=== PATIENT | male | born 1980 | race Caucasian/White ===

== ENCOUNTER 2018-09-01 16:10 | Observation (INO) ==
[2018-09-01] MEDS ORDERED: *HR* Promethazine 25 MG/ML VIAL IVP PRN (16:34)
[2018-09-01] MEDS ORDERED: *HR* HYDROcodone/Acet 5/325 mg TABLET PO PRN (16:34)
[2018-09-01] MEDS ORDERED: Ondansetron 4 MG/2 ML VIAL IVP PRN (16:34)
[2018-09-01] MEDS ORDERED: Naloxone 0.4 MG/ML INJ IVP PRN (16:34)
[2018-09-01] MEDS: 0.9 % Sodium Chloride 1,000 ML IVC SCH (17:12)
--- NOTE | 2018-09-01 17:19 | Urology History & Physical ---
Date of Encounter: 09/01/18 Time of Encounter: 17:17 Assessment and Plan (1) Ureteral stone with hydronephrosis Current Visit: Yes Status: Acute Visit was scheduled for a stone extraction but his pain now requires admission. We'll plan for ureteroscopic stone extraction with holmium laser tomorrow on the add-on schedule. Patient understands the procedure and all questions were addressed. (2) Flank pain Current Visit: Yes Status: Acute We'll manage pain with Toradol and oxycodone. BMP to confirm renal function prior to giving Toradol. History of Present Illness Chief complaint: Flank pain HPI: Mr. Muhammad is a 38 year old male seen in Dr. Jewell's office today with a 4 mm mid ureteral calculi on the left side. Before leaving the office the patient reports his symptoms are too severe to manage at home. Has returned for admission and surgical management. Past Med Surg Social Fam HX - Past Medical History Medical history: no medical history Psychiatric history: no psych history - Past Surgical History Surgical History: herniorrhaphy - Social History Smoking Status: Never smoker Smokeless Tobacco Status: No Alcohol use: occasionally Drug use: none - Family History Father Hx Family Genitourinary Disorders: Yes (kidney stones) Medications and Allergies 3 Allergy/AdvReac Type Severity Reaction Status Date / Time ceftriaxone [From Rocephin] AdvReac Vomiting Verified 03/27/17 12:09 Review of Systems - Constitutional no chills, no fever(s) - EENT Nose, mouth and throat: no dizziness - Cardiovascular no chest pain - Respiratory no cough - Gastrointestinal abdominal pain, nausea - Genitourinary flank pain, hematuria - Musculoskeletal back pain - Integumentary no erythema - Neurological no confusion - Psychiatric no anxiety - Hematologic/Lymphatic no easy bleeding - Allergic/Immunologic no throat swelling Exam Initial Vital Signs Temp Pulse Resp BP Pulse Ox 98.1 F 63 14 124/81 97 09/01/18 16:46 09/01/18 16:46 09/01/18 16:46 09/01/18 16:46 09/01/18 16:46 - General physical appearance Present: well developed, no distress, moderate pain - Eyes Present: PERRL - ENT Present: normal nares, no hearing loss - Neck Present: no masses, no lymphadenopathy - Respiratory Present: normal respiratory effort - Cardiovascular Cardiovascular exam IM: RRR - Abdomen Abdomen: Present: soft, suprapubic tenderness (+CVA tenderness) - Integumentary Present: no rash, no growths, no abnormal pigmentation - Neurologic Present: normal coordination. Absent: disoriented, confused - Musculoskeletal Present: normal gait Urology Results - Labs All other labs normal.
[2018-09-01] MEDS: OXYCODONE Oral CONC 10 MG/0.5 ML ORAL.SYG SL PRN ×2 (18:12→23:25)
[2018-09-01 18:17] LABS: Basophils % 0.3 %; Eosinophils % 0.2 %; Hematocrit 47.2 % (37.5-50.1); Hemoglobin 15.7 g/dL (12.9-16.9); Immature Granulocytes % 0.5 % (0-4); Lymphocytes # 1.4 K/mcL (0.6-4.6); Mean Corpuscular HGB Conc 33.3 g/dL (31.6-35.5); Mean Corpuscular Hemoglobin 29.4 pg (28.0-33.3); Mean Corpuscular Volume 88.4 fL (83.0-100.0); Mean Platelet Volume 9.3 fL (9.4-12.4); Monocytes # 0.8 K/mcL (0.0-1.3); Monocytes % 6.8 %; Platelet Count 222 K/mcL (140-400); Red Blood Count 5.34 M/mcL (4.19-5.50); Red Cell Distribution Width 12.4 % (11.5-14.5); Segmented Neutrophils % 81.2 %
[2018-09-01 18:33] LABS: BUN/Creatinine Ratio 17 (6-26); Blood Urea Nitrogen 19 mg/dL (6-20); Calcium 9.5 mg/dL (8.6-10.3); Carbon Dioxide 31 mEq/L (23-29); Chloride 102 mEq/L (98-107); Glucose 96 mg/dL (70-105); Osmolality,Calculated 290 (280-300); Potassium 3.9 mEq/L (3.5-5.1); Sodium 139 mEq/L (136-145); eGFR For Non-African Americans > 60 (> 60)
[2018-09-01] MEDS: Ketorolac 30 MG/ML VIAL IVP PRN (20:28)
[2018-09-02] MEDS: Ketorolac 30 MG/ML VIAL IVP PRN ×2 (02:25→09:45)
[2018-09-02] MEDS: 0.9 % Sodium Chloride 1,000 ML IVC SCH (02:55)
[2018-09-02] MEDS: OXYCODONE Oral CONC 10 MG/0.5 ML ORAL.SYG SL PRN ×2 (07:48→12:37)
[2018-09-02] MEDS ORDERED: Levofloxacin 500 MG/100 ML 500 MG/100 ML BAG IVPB SCH (09:00)
--- NOTE | 2018-09-02 11:16 | Anesthesia Evaluation PreOp ---
Date of Encounter: 09/02/18 Time of Encounter: 11:20 - Past History Planned Operation: Left USE Cardiac History: Denies any Significant Hx Pulmonary History: Denies Any Significant HX UNDERWEAR HEMMER History: Denies Any Significant HX Other Medical History: Denies Any Significant HX Anesthesia History: No Prior Anesthetic Complications Alcohol Use: occasionally Drug use: none Medications and Allergies Lansoprazole [Prevacid] 30 mg PO DAILY 09/02/18 [History] 3 Allergy/AdvReac Type Severity Reaction Status Date / Time ceftriaxone [From Rocephin] AdvReac Vomiting Verified 03/27/17 12:09 - Meds/Allergy Pre-op Review Medications Reviewed: Yes Allergies Reviewed: Yes Beta Blockers on Current Med List: No Anesthesia Results - Labs 09/01/18 17:49 09/01/18 17:49 Anesthesia Exam Vital Signs/O2 Sat/Glucose, Most Current Temp Pulse Resp BP Pulse Ox 09/02/18 10:18 97.8 F 54 15 120/69 95 09/02/18 07:33 97.4 F L 52 15 128/80 98 Height: 6'0 Weight: 229 lbs NPO (# of Hours): MN Pain Scale: 0 - HEENT Pupil (Motor): Pupils equal, EOMI Mallampati: II Teeth: Normal Oral Opening: Greater than 3 - UNDERWEAR HEMMER LOC: Oriented UNDERWEAR HEMMER Motor: Normal RUE, Normal LUE, Normal RLE, Normal LLE, Normal Face UNDERWEAR HEMMER Sensory: Normal: RUE, LUE, RLE, LLE, Face - Cardiac Rhythm: Regular Murmur: None JVD: No Carotid Bruit: No - Pulmonary Breath Sounds: bilateral Clear Respiratory Effort: Symmetrical Anesthesia Assess/Plan ASA Score: 1 Modified Jeremiah Scale for Level of Consciousness: Cooperative, oriented, and tranquil Anesthetic Plan: General Monitoring Plan: Standard Monitors Recovery Plan: PACU (Discussed GA, agrees to proceed)
[2018-09-02] MEDS ORDERED: Famotidine 20 MG/2 ML VIAL ONE (11:21)
[2018-09-02] MEDS ORDERED: Isovue-300 50 ML VIAL IVP ONE (11:31)
[2018-09-02] MEDS ORDERED: *HR* Propofol 200 MG/20 ML VIAL IVP ONE (11:34)
[2018-09-02] MEDS ORDERED: Lidocaine -MPF 2% 2 ML VIAL ONE (11:34)
[2018-09-02] MEDS ORDERED: Ondansetron 4 MG/2 ML VIAL ONE (11:34)
[2018-09-02] MEDS ORDERED: Dexamethasone 4 MG/ML VIAL ONE (11:34)
[2018-09-02] MEDS ORDERED: *HR* FentaNYL (PF) 100 MCG/2 ML VIAL ONE (11:34)
--- NOTE | 2018-09-02 11:47 | Operative Note ---
Date of procedure: 09/02/18 Pre-op diagnosis: left 4 mm mid ureteral stone Post-op diagnosis: same Procedure: left ureteroscopic stone extraction left retrograde pyelogram/JJ stent. Anesthesia: GETA Surgeon: Dev Ramírez Was there an administrative library assistant present: No Estimated blood loss (cc): 0 Specimen: stone Condition: stable Disposition: PACU Procedure in Detail: PROCEDURE IN DETAIL: Patient was taken back to the operating room, positioned supine on the operating table. Anesthesia was applied without complication. They were moved into dorsal lithotomy. Careful attention was maintained to cushion all pressure points for patient's safety. They were prepped and draped in sterile fashion. Time-out was performed with the proper patient and procedure. A 21-Thai rigid cystoscope was inserted into the bladder without difficulty. Systematic examination of bladder revealed no abnormalities. The ureteral orifice was cannulated using a 5-Thai ureteral Catheter and a retrograde pyelogram was performed using Isovue. A filling defect was identified which corresponded to the stone. At that point, a zip wire was placed through the 5-Thai and confirmed in the renal pelvis with fluoroscopy. An 8-10 dilator was then placed over the zip wire to passively dilate the ureteral orifice. A semi-rigid ureteroscope was carefully inserted into the bladder and guided into the ureteral oriface. At that point, the stone was encountered and I was able to extract the stone without laser lithotripsy. A 4.8 x 26 ureteral stent was placed over the zip wire under fluoroscopy without complication. The bladder was drained. The stone was sent for analysis. The string was left attached to the stent and secured to the patient for easy removal in approximately 72 hours
[2018-09-02] MEDS ORDERED: *HR* HYDROmorphone (PF) 1 MG/ML SYRINGE IVP PRN (11:48)
[2018-09-02] MEDS ORDERED: *HR* Promethazine 25 MG/ML VIAL IVP PRN ×2 (11:48→13:06)
--- NOTE | 2018-09-02 12:40 | Anesthesia Evaluation Post Op ---
Date of Encounter: 09/02/18 Time of Encounter: 12:38 - Vital Signs Vital Signs: Vital Signs/O2 Sat, Most Current Temp Pulse Resp BP Pulse Ox 97.8 F 54 12 113/79 96 09/02/18 12:08 09/02/18 12:18 09/02/18 12:18 09/02/18 12:18 09/02/18 12:18 - Lungs Lungs: Clear Ascult./Percussion - Airway Airway: Non-obstructed - Cardiovascular Regular Rate - Mental Status Mental Status: Alert & Oriented, Answers Appropriately - Pain Pain Scale: 5 Pain Scale used: Numeric (1 - 10) - Nausea Vomiting Nausea Vomiting: Not Present - Hydration Hydration: NPO, Has not voided - Discharge PostOp Status: Transfer Patient to floor (fully awake, VSS, no anesthetic complications)
[2018-09-02] MEDS ORDERED: *HR* HYDROcodone/Acet 5/325 mg TABLET PO PRN (13:06)
[2018-09-02] MEDS ORDERED: Naloxone 0.4 MG/ML INJ IVP PRN (13:06)
[2018-09-02] MEDS ORDERED: Ondansetron 4 MG/2 ML VIAL IVP PRN (13:06)
[2018-09-02] MEDS ORDERED: 0.9 % Sodium Chloride 1,000 ML IVC SCH (13:06)
[2018-09-02] MEDS ORDERED: Ketorolac 30 MG/ML VIAL IVP PRN (13:06)
[2018-09-02] MEDS ORDERED: OXYCODONE Oral CONC 10 MG/0.5 ML ORAL.SYG SL PRN (13:06)
--- NOTE | 2018-09-02 14:46 | Discharge Summary ---
Orders not resulted at time of discharge: Pending orders 09/02/18 12:13 Surgical Pathology [PTH] Routine Date of Encounter: 09/02/18 Time of Encounter: 14:20 - Discharge Diagnosis (1) Flank pain Priority: Secondary Status: Acute (2) Ureteral stone with hydronephrosis Priority: Primary Status: Acute - Hospital Course Hospital course: Mr. Muhammad is a 38 year old male who presents with a 4 mm left mid ureteral stone and hydronephrosis. On 09/02/2018, the patient was taken to the operating room where he underwent a left ureteroscopic stone extraction and left retrograde pyelogram/JJ stent. There were no surgical complications, and the patient tolerated the procedure well. On postoperative day 0, his postoperative course was relatively unremarkable, and he was dismissed in satisfactory condition. Postoperative expectations, activity, and restrictions were reviewed with the patient and his . The patient has elected to follow- up in the office on postoperative day #3 for ureteral stent removal. Time spent discussing smoking cessation with patient: 3 to 10 minutes - Time Spent with Patient Total time spent providing and/or coordinating discharge services: Less than 30 minutes Procedures and tests throughout hospitalization: left ureteroscopic stone extraction left retrograde pyelogram/JJ stent. Labs on day of discharge: Labs from last 24 hours 09/01/18 09/01/18 17:49 17:49 WBC 12.3 H RBC 5.34 Hgb 15.7 Hct 47.2 MCV 88.4 MCH 29.4 MCHC 33.3 RDW 12.4 Plt Count 222 MPV 9.3 L Immature Gran % 0.5 Seg Neutrophils % 81.2 Lymphocytes % 11.0 Monocytes % 6.8 Eosinophils % 0.2 Basophils % 0.3 Neutrophils # 10.0 H Lymphocytes # 1.4 Monocytes # 0.8 Eosinophils # 0.0 Basophils # 0.0 Sodium 139 Potassium 3.9 Chloride 102 Carbon Dioxide 31 H BUN 19 Creatinine 1.11 Est GFR ( Amer) > 60 Est GFR (Non-Af Amer) > 60 BUN/Creatinine Ratio 17 Glucose 96 Calculated Osmolality 290 Calcium 9.5 - Impressions ITS Impressions Retrograde Pyelogram 09/02/18 12:03 IMPRESSION: Intraprocedural fluoroscopic spot images as above. See separate procedure report for more information. D/ / Daysi Cervantes MD / Daysi Cervantes MD Interpreting Provider: Daysi Cervantes MD - Discharge Medications Prescriptions: HYDROcodone/Acet 5/325 mg [Seaboard 5-325 mg] 1 tab PO Q6H PRN 4 Days #15 tab PRN Reason: Moderate Pain Home Medications: HYDROcodone/Acet 5/325 mg [[place]oard 5-325 mg] 1 tab PO Q6H PRN 4 Days #15 tab 09/02 [Rx] Lansoprazole [Prevacid] 30 mg PO DAILY 09/02/18 [History] Allergies/Adverse Reactions: 3 Allergy/AdvReac Type Severity Reaction Status Date / Time ceftriaxone [From Rocephin] AdvReac Vomiting Verified 03/27/17 12:09 Date of admission: 09/01/18 16:39 Primary care physician: Belgica Blancas CNP Discharging clinician: Patience Ramirez Anticipated date of discharge: 09/02/18 Exam Initial Vital Signs Temp Pulse Resp BP Pulse Ox 98.1 F 63 14 124/81 97 09/01/18 16:46 09/01/18 16:46 09/01/18 16:46 09/01/18 16:46 09/01/18 16:46 - General physical appearance Present: well developed, no distress, no pain - Eyes Present: PERRL, normal ocular movement - ENT Present: normal nares, no hearing loss, no congestion - Neck Present: no masses, trachea midline - Respiratory Present: normal respiratory effort - Cardiovascular Cardiovascular exam IM: RRR - Abdomen Abdomen: Present: soft, non tender - Genitourinary other (urine is transparent cranberry color ) - Integumentary Present: no rash, no abnormal pigmentation - Neurologic Present: normal coordination - Musculoskeletal Present: other (normal posture ) - Patient Status Disposition: Home, Self-Care Condition: Good Overall status at discharge: patient is progressing back to baseline - Discharge Instructions Follow Up With: Belgica Blancas CNP [Primary Care Provider] - Dev Ramírez MD [Partnered Physician] - Additional Instructions: Call if fever greater than 101 degrees. May expect blood in the urine. May experience irritating voiding symptoms such as frequency, urgency, hesitancy , dysuria. Okay to use Azo [id number]. Okay to use Colace [id number]. Okay to shower. Okay to drive as long as you are no longer taking narcotic pain medicine. May return to normal activity as tolerated. May self remove stent or follow up in the office for stent removal on postoperative day 3. - Diet and Activity Activity: increase activity as tolerated Diet: advance to your usual diet - VTE Documentation of Mechanical Device: Intermittent pneumatic compression device
[2018-09-02 16:37] VITALS: BP 120/75
[2018-09-03] MEDS ORDERED: Levofloxacin 500 MG/100 ML 500 MG/100 ML BAG IVPB SCH (09:00)
[2018-09-07 16:28] LABS: Calculi Mass 27 mg
== END 2018-09-02 17:02 | disposition home or self-care (01) ==
LOC: 3ANU 16:39 → INTOOBSV 16:39
PROVIDERS: ADMIT Urology; ATTEND Urology

== ENCOUNTER 2018-09-05 11:50 | Observation (INO) ==
[2018-09-05] MEDS ORDERED: 0.9 % Sodium Chloride 1,000 ML IVC SCH (12:15)
[2018-09-05] MEDS ORDERED: *HR* Promethazine 25 MG/ML VIAL IVP PRN (12:15)
[2018-09-05] MEDS ORDERED: Ketorolac 30 MG/ML VIAL IVP PRN (12:15)
[2018-09-05] MEDS ORDERED: Hyoscyamine SL 0.125 MG TAB.SUBL SL PRN (12:15)
[2018-09-05] MEDS ORDERED: Ondansetron 4 MG/2 ML VIAL IVP PRN (12:15)
[2018-09-05] MEDS ORDERED: Naloxone 0.4 MG/ML INJ IVP PRN (12:15)
[2018-09-05] MEDS ORDERED: OXYCODONE Oral CONC 10 MG/0.5 ML ORAL.SYG SL PRN (12:15)
[2018-09-05] MEDS ORDERED: Acetaminophen IV 1,000 MG/100 ML INFUS..BTL IVPB ONE (12:17)
[2018-09-05] MEDS ORDERED: *HR* FentaNYL (PF) 100 MCG/2 ML VIAL IVP PRN (12:17)
--- NOTE | 2018-09-05 12:20 | Urology History & Physical ---
<KanikaPatience henry N - Last Filed: 09/05/18 12:16> Date of Encounter: 09/05/18 Time of Encounter: 12:16 Assessment and Plan (1) Flank pain Status: Acute Patient is a 38 year old male who presents with intractable pain following ureteral stent removal. Plan to direct admit patient for pain control and IV hydration. History of Present Illness Chief complaint: intractable pain following stent removal HPI: Mr. Muhammad is a 38 year old male who presents 3 days postoperatively from left ureteroscopic stone extraction, left retrograde pyelogram/JJ stent. Patient was seen this morning in the clinic for ureteral stent removal, and patient subsequently experienced severe pain, ureteral spasm and referred left testicular pain. Patient took 800mg of Ibuprofen without relief of symptoms and represented to the office where he elected direct admission over ED transfer. Past Med Surg Social Fam HX - Past Medical History Medical history: no medical history Psychiatric history: no psych history - Past Surgical History Surgical History: herniorrhaphy - Social History Smoking Status: Never smoker Smokeless Tobacco Status: No Alcohol use: occasionally Drug use: none Medications and Allergies HYDROcodone/Acet 5/325 mg [Harmony 5-325 mg] 1 tab PO Q6H PRN 4 Days #15 tab 09/02 [Rx] Lansoprazole [Prevacid] 30 mg PO DAILY 09/02/18 [History] Ketorolac [Toradol] 10 mg PO Q6HR PRN 3 Days #10 tablet 09/05/18 [Rx] 3 Allergy/AdvReac Type Severity Reaction Status Date / Time ceftriaxone [From Rocephin] AdvReac Vomiting Verified 03/27/17 12:09 Review of Systems - Constitutional chills, no fatigue, no fever(s) - EENT Nose, mouth and throat: no dizziness, no headache(s) - Cardiovascular no chest pain, no diaphoresis, no dyspnea - Respiratory no cough, no dyspnea - Gastrointestinal abdominal pain, nausea, no vomiting - Genitourinary hematuria, testicular pain, no difficulty urinating, no dysuria, no urinary frequency, no urinary hesitancy, no urinary incontinence, no urinary urgency - Musculoskeletal back pain, no muscle weakness - Integumentary no erythema, no rash, no swelling - Neurological no confusion, no sensory deficit - Psychiatric no anxiety, no confusion Exam - General physical appearance Present: well developed, moderate distress, severe pain - Eyes Present: PERRL, normal ocular movement - ENT Present: normal nares, no hearing loss, no congestion - Neck Present: no masses, trachea midline - Respiratory Present: normal respiratory effort - Cardiovascular Cardiovascular exam IM: RRR - Abdomen Abdomen: Present: soft, tender - Genitourinary other (left testicular pain ) - Integumentary Present: no rash, no abnormal pigmentation - Neurologic Present: normal coordination - Musculoskeletal Present: other (no pedal edema ) Urology Results - Labs All other labs normal. <Dev Ramírez - Last Filed: 09/06/18 07:39> Date of Encounter: 09/06/18 Assessment and Plan (1) Flank pain Status: Resolved seen in conjunction with PA. Agree with notes and plan History of Present Illness HPI: Mr. Muhammad is a 38 year old male Exam Initial Vital Signs Temp Pulse Resp BP Pulse Ox 98.0 F 55 16 147/94 96 09/05/18 16:35 09/05/18 16:35 09/05/18 16:35 09/05/18 16:35 09/05/18 16:35 Urology Results - Labs 09/05/18 12:32 Abnormal lab results Carbon Dioxide 30 mEq/L (23-29) H 09/05/18 12:32 Diabetes panel 09/05/18 Range/Units 12:32 Sodium 136 (136-145) mEq/L Potassium 3.7 (3.5-5.1) mEq/L Chloride 99 (98-107) mEq/L Carbon Dioxide 30 H (23-29) mEq/L BUN 13 (6-20) mg/dL Creatinine 1.08 (0.70-1.30) mg/dL Glucose 100 (70-105) mg/dL Calcium 9.5 (8.6-10.3) mg/dL Calcium panel 09/05/18 Range/Units 12:32 Calcium 9.5 (8.6-10.3) mg/dL Pituitary panel 09/05/18 Range/Units 12:32 Sodium 136 (136-145) mEq/L Potassium 3.7 (3.5-5.1) mEq/L Chloride 99 (98-107) mEq/L Carbon Dioxide 30 H (23-29) mEq/L BUN 13 (6-20) mg/dL Creatinine 1.08 (0.70-1.30) mg/dL Glucose 100 (70-105) mg/dL Calcium 9.5 (8.6-10.3) mg/dL Adrenal panel 09/05/18 Range/Units 12:32 Sodium 136 (136-145) mEq/L Potassium 3.7 (3.5-5.1) mEq/L Chloride 99 (98-107) mEq/L Carbon Dioxide 30 H (23-29) mEq/L BUN 13 (6-20) mg/dL Creatinine 1.08 (0.70-1.30) mg/dL Glucose 100 (70-105) mg/dL Calcium 9.5 (8.6-10.3) mg/dL All other labs normal.
[2018-09-05 13:09] LABS: BUN/Creatinine Ratio 12 (6-26); Blood Urea Nitrogen 13 mg/dL (6-20); Calcium 9.5 mg/dL (8.6-10.3); Carbon Dioxide 30 mEq/L (23-29); Chloride 99 mEq/L (98-107); Glucose 100 mg/dL (70-105); Osmolality,Calculated 282 (280-300); Potassium 3.7 mEq/L (3.5-5.1); Sodium 136 mEq/L (136-145); eGFR For Non-African Americans > 60 (> 60)
[2018-09-05 16:37] VITALS: BP 147/94
--- NOTE | 2018-09-05 16:37 | Discharge Summary ---
Date of Encounter: 09/05/18 Time of Encounter: 16:35 - Discharge Diagnosis (1) Flank pain Priority: Primary Status: Resolved Comments: Ureteral spasm after stent removal. Completely resolved with pain medication and IV fluids. Renal function normal - Hospital Course Hospital course: Mr. Muhammad is a 38 year old male patient readmitted today for flank pain after stent removal. Pain was intractable and uncontrolled. After IV Tylenol and sentinel pain is completely resolved and remains at 0/10. States feels great. Wishes for discharge. I did discuss staying overnight to verify that the pain did not return. Renal function normal - Time Spent with Patient Total time spent providing and/or coordinating discharge services: Less than 30 minutes Labs on day of discharge: Labs from last 24 hours 09/05/18 12:32 Sodium 136 Potassium 3.7 Chloride 99 Carbon Dioxide 30 H BUN 13 Creatinine 1.08 Est GFR ( Amer) > 60 Est GFR (Non-Af Amer) > 60 BUN/Creatinine Ratio 12 Glucose 100 Calculated Osmolality 282 Calcium 9.5 - Discharge Medications Prescriptions: Ketorolac [Toradol] 10 mg PO Q6HR PRN 3 Days #10 tablet PRN Reason: Pain Home Medications: HYDROcodone/Acet 5/325 mg [Walker 5-325 mg] 1 tab PO Q6H PRN 4 Days #15 tab 09/02 [Rx] Lansoprazole [Prevacid] 30 mg PO DAILY 09/02/18 [History] Ketorolac [Toradol] 10 mg PO Q6HR PRN 3 Days #10 tablet 09/05/18 [Rx] Allergies/Adverse Reactions: 3 Allergy/AdvReac Type Severity Reaction Status Date / Time ceftriaxone [From Rocephin] AdvReac Vomiting Verified 03/27/17 12:09 Date of admission: 09/05/18 12:04 Primary care physician: Belgica Blancas CNP Discharging clinician: Dev Ramírez Anticipated date of discharge: 09/05/18 Exam - General physical appearance Present: no distress - Patient Status Disposition: Home, Self-Care Condition: Good Functional capacity at discharge: independent ambulation Overall status at discharge: patient is progressing back to baseline - Discharge Instructions Follow Up With: Belgica Blancas CNP [Primary Care Provider] - - Diet and Activity Activity: increase activity as tolerated Diet: advance to your usual diet
== END 2018-09-05 17:09 | disposition home or self-care (01) ==
LOC: 3BNU
PROVIDERS: ADMIT Urology; ATTEND Urology

== ENCOUNTER 2018-09-06 10:46 | Observation (INO) ==
[2018-09-06] MEDS ORDERED: *HR* Morphine 2 MG/ML SYRINGE IVP ONE (10:58)
[2018-09-06] MEDS ORDERED: 0.9 % Sodium Chloride 1,000 ML IVC ONE ×2 (10:58→13:30)
[2018-09-06] MEDS ORDERED: Hyoscyamine 0.5 MG/ML MLS IVP ONE (11:11)
--- NOTE | 2018-09-06 11:13 | Emergency Department Note ---
Disposition Clinical Impression: Pain involving ureter Disposition: Admitted As Inpatient Condition: Good Time of Disposition: 14:30 Abdominal Pain HPI - General Chief Complaint: ED Abdominal Pain Stated Complaint: Kidney Stone Time Seen by Provider: 09/06/18 10:57 Source: patient Mode of arrival: ambulatory Limitations: no limitations Nursing Notes Reviewed: Yes Vital Signs Reviewed: Yes - History of Present Illness HPI Narrative: Patient presents to the ED with the chief complaint of left-sided abdominal pain. Patient recently had a stent removal by Dr. Ramírez after having an obstructing stone. He was directly admitted from his office for ureteral spasm and pain and discharged a few hours later. Patient states he was feeling okay now. He started having the exact same pain again. Complaining of 10 out of 10 left lower quadrant, left groin, left testicular pain. States that it feels swollen. States that today was the first day. His urine actually cleared. States that his pain is worse than it was yesterday. Associated with nausea but no vomiting. No fever or chills. No chest pain or shortness of breath. Patient states that he had to take his shirt off, because even the material on his abdomen, made them hurt worse. Pain Scale: 10 - Related Data Home Medications Medication Instructions Recorded Confirmed Lansoprazole [Prevacid] 30 mg PO DAILY 09/02/18 09/05/18 Previous Rx's Medication Instructions Recorded HYDROcodone/Acet 5/325 mg [[place] 1 tab PO Q6H PRN 4 Days #15 tab 09/02/18 5-325 mg] Ketorolac [Toradol] 10 mg PO Q6HR PRN 3 Days #10 tablet 09/05/18 Allergies Allergy/AdvReac Type Severity Reaction Status Date / Time ceftriaxone [From Rocephin] AdvReac Vomiting Verified 03/27/17 12:09 Review of Systems: As reviewed in the HPI. All other systems reviewed are negative or normal. Abdominal Pain PMH - Past Medical History Medical history: Reports: other Male Surgical History: Reports: other Psychiatric history: Reports: no psych history - Social History Smoking status: Never smoker Alcohol use: Reports: none Drug use: Reports: none Physical Exam CONSTITUTIONAL: [well appearing, alert and in acute distress , writhing around on the bed] EYES: [EOMI, clear conjunctiva] HENT: [Normocephalic, atraumatic, moist mucus membranes, normal oropharynx] NECK: [normal inspection, full ROM, trachea midline, no obvious swelling] PULMONARY: [normal lung sounds bilaterally, normal chest rise and fall, no respiratory distress or stridor, no wheezes, no rales, no rhonchi CARDIOVASCULAR: [regular rate, regular rhythm, normal heart sounds, no murmurs, distal extremities are warm and well perfused] GASTROINSTESTINAL: [soft, tender, non-rigid, mildly distended, + guarding, no rebound, normal bowel sounds] GENITOURINARY/RECTAL: [deferred] NEUROLOGIC: [Alert, oriented x3, normal speech, moves all extremities] EXTREMITIES: [Normal inspection, full ROM, no tenderness, no pedal edema, normal capillary refill] MUSCULOSKELETAL: [no gross deformities, atraumatic] SKIN: [No cyanosis, no diaphoresis, normal color, warm, no rash] PSYCHIATRIC: [anxious] Course Course Narrative: Patient presenting with left-sided abdominal pain. I spoke with Dr. Ramírez as he had already called the patient's family. He was agreeable with pain control , plus or minus CT imaging. States that we would likely see mild hydronephrosis with some ureteral stranding. States that he removed the stent himself and was certain there would be no ureteral injury. States that if the patient's pain is able to be controlled, he would be able to go home and if not , he will admit him to his service. Did state that he got IV, Tylenol in his office yesterday and that seemed to work very well for his pain and recommended that again today. - Reevaluation(s) Reevaluation #1: Repeat abdominal exam reveals resolution of previous guarding and is now soft, NTND. CT showed what Dr. Ramírez had expected. Patient's pain is much better under control after dilaudid but does still have a "pressure" in his lower abdomen. Discussed options with patient and Dr. Ramírez, through shared decision making, the patient decided to be admitted to the hospital for closer monitoring and treatment of his pain. Vital Signs Temperature 97.8 F 09/06/18 10:47 Pulse Rate 63 09/06/18 10:47 Respiratory Rate 20 09/06/18 10:47 Blood Pressure 140/89 09/06/18 10:47 O2 Sat by Pulse Oximetry 97 09/06/18 10:47 Temperature 97.8 F 09/06/18 11:05 Pulse Rate 60 09/06/18 14:05 Respiratory Rate 18 09/06/18 14:05 Blood Pressure 115/66 09/06/18 14:05 O2 Sat by Pulse Oximetry 97 09/06/18 14:05 Oxygen Delivery Oxygen Delivery Room Air Abdominal Pain - Lab Data Result diagrams: 09/06/18 11:17 09/06/18 11:17 Lab Results 09/06/18 09/06/18 09/06/18 Range/Units 10:57 11:17 11:17 WBC 9.8 (4.3-11.1) K/mcL RBC 5.47 (4.19-5.50) M/mcL Hgb 16.1 (12.9-16.9) g/dL Hct 47.0 (37.5-50.1) % MCV 85.9 (83.0-100.0) fL MCH 29.4 (28.0-33.3) pg MCHC 34.3 (31.6-35.5) g/dL RDW 12.0 (11.5-14.5) % Plt Count 228 (140-400) K/mcL MPV 9.2 L (9.4-12.4) fL Immature Gran % 0.5 (0-4) % Seg Neutrophils % 79.7 % Lymphocytes % 10.4 % Monocytes % 8.1 % Eosinophils % 0.9 % Basophils % 0.4 % Neutrophils # 7.8 (1.6-8.9) K/mcL Lymphocytes # 1.0 (0.6-4.6) K/mcL Monocytes # 0.8 (0.0-1.3) K/mcL Eosinophils # 0.1 (0.0-0.6) K/mcL Basophils # 0.0 (0.0-0.2) K/mcL Sodium 138 (136-145) mEq/L Potassium 3.9 (3.5-5.1) mEq/L Chloride 103 (98-107) mEq/L Carbon Dioxide 28 (23-29) mEq/L BUN 17 (6-20) mg/dL Creatinine 1.26 (0.70-1.30) mg/dL Est GFR ( Amer) > 60 (> 60) Est GFR (Non-Af Amer) > 60 (> 60) BUN/Creatinine Ratio 13 (6-26) Glucose 102 (70-105) mg/dL Calculated Osmolality 288 (280-300) Calcium 9.5 (8.6-10.3) mg/dL Urine Color Straw (Yellow) Urine Clarity Clear (Clear) Urine pH 7.0 (5.0-8.0) pH Units Ur Specific [place] 1.010 (1.010-1.025) Urine Protein Negative (Neg-Trace) mg/dL Urine Glucose (UA) Normal (Normal) mg/dL Urine Ketones Negative (Negative) mg/dL Urine Blood Large H (Negative) Urine Nitrite Negative (Negative) Urine Bilirubin Negative (Negative) Urine Urobilinogen Normal (Normal) mg/dL Ur Leukocyte Esterase Negative (Negative) Urine Microscopic RBC 5-15 H (0-3) per hpf Urine Microscopic WBC 0-3 (0-3) per hpf Ur Squamous Epith Cells None Seen (None-Few) per lpf Urine Bacteria None Seen (None-Few) per hpf Hyaline Casts None Seen (None-Few) per lpf Ur Culture Indicated? NO (NO) Attestation Statement - Attestation Attestation: I examined this patient and my medical decision-making was reviewed with the Resident Physician, Dr. Edward. I agree with the documented findings, disposition and treatment plan as described except to the extent set forth below. Patient is a 38 year old white male who presents to emergency permit today with complaints of left-sided abdominal flank pain and groin pain. Patient had a recent stent placed for ureteral obstruction secondary to stone by Dr. Ramírez and had the stent removed yesterday. Patient states he was doing well urine is cleared but then the pain returned and has been quite intense. Patient on arrival appears uncomfortable complaining of 10 out of 10 pain. Patient complains of nausea. No fevers or chills, no difficulty urinating. I agree with patient's physical exam findings as documented. Patient had good improvement of his pain following medicine administration. Narcotics seemed to alleviate his discomfort. Patient's lab evaluation is unremarkable and urinalysis just shows large hematuria. CT of the abdomen and pelvis without contrast shows evidence of persistent [place] and ureteral dilatation with stranding. We did speak with Dr. Ramírez by phone who agreed to accept the patient for admission as he plans to replace the patient's stent tomorrow if he is still having pain. Patient states symptoms at this time are much improved but would feel better to stay in the hospital for ongoing pain medication. Patient remains hemodynamically stable and resting comfortably at this time.
[2018-09-06 11:16] LABS: Bilirubin,Urine Negative (Negative); Blood,Urine Large (Negative); Clarity,Urine Clear (Clear); Glucose,Urine (UA) Normal (Normal); Ketones,Urine Negative (Negative); Leukocyte Esterase,Urine Negative (Negative); Nitrite,Urine Negative (Negative); Protein,Urine Negative (Neg-Trace); Urobilinogen,Urine Normal (Normal)
[2018-09-06 11:19] LABS: Bacteria,Urine None Seen per hpf (None-Few); Hyaline Casts,Urine None Seen per lpf (None-Few); Squamous Epithelial Cell,Urine None Seen per lpf (None-Few); WBC,Urine 0-3 per hpf (0-3)
[2018-09-06 11:22] LABS: Color,Urine Straw (Yellow)
[2018-09-06 11:23] LABS: Basophils % 0.4 %; Eosinophils # 0.1 K/mcL (0.0-0.6); Eosinophils % 0.9 %; Hemoglobin 16.1 g/dL (12.9-16.9); Immature Granulocytes % 0.5 % (0-4); Lymphocytes % 10.4 %; Mean Corpuscular HGB Conc 34.3 g/dL (31.6-35.5); Mean Corpuscular Hemoglobin 29.4 pg (28.0-33.3); Mean Corpuscular Volume 85.9 fL (83.0-100.0); Mean Platelet Volume 9.2 fL (9.4-12.4); Monocytes # 0.8 K/mcL (0.0-1.3); Monocytes % 8.1 %; Neutrophils # 7.8 K/mcL (1.6-8.9); Platelet Count 228 K/mcL (140-400); Red Blood Count 5.47 M/mcL (4.19-5.50); Segmented Neutrophils % 79.7 %
[2018-09-06] MEDS ORDERED: Acetaminophen IV 1,000 MG/100 ML INFUS..BTL IVPB ONE (11:25)
[2018-09-06] MEDS ORDERED: Ondansetron 4 MG/2 ML VIAL IVP ONE (11:25)
[2018-09-06 11:42] LABS: BUN/Creatinine Ratio 13 (6-26); Blood Urea Nitrogen 17 mg/dL (6-20); Calcium 9.5 mg/dL (8.6-10.3); Carbon Dioxide 28 mEq/L (23-29); Chloride 103 mEq/L (98-107); Glucose 102 mg/dL (70-105); Osmolality,Calculated 288 (280-300); Potassium 3.9 mEq/L (3.5-5.1); Sodium 138 mEq/L (136-145); eGFR For Non-African Americans > 60 (> 60)
[2018-09-06] MEDS ORDERED: *HR* HYDROmorphone (PF) 1 MG/ML SYRINGE IVP ONE (12:03)
[2018-09-06] MEDS ORDERED: Ondansetron 4 MG/2 ML VIAL IVP PRN (18:23)
[2018-09-06] MEDS ORDERED: Hyoscyamine SL 0.125 MG TAB.SUBL SL PRN (18:23)
[2018-09-06] MEDS ORDERED: *HR* Promethazine 25 MG/ML VIAL IVP PRN (18:23)
[2018-09-06] MEDS ORDERED: Naloxone 0.4 MG/ML INJ IVP PRN (18:23)
[2018-09-06] MEDS ORDERED: *HR* FentaNYL (PF) 100 MCG/2 ML VIAL IVP PRN (18:23)
[2018-09-06] MEDS: 0.9 % Sodium Chloride 1,000 ML IVC SCH (20:00)
[2018-09-06] MEDS: Acetaminophen IV 1,000 MG/100 ML INFUS..BTL IVPB SCH ×2 (20:00→23:35)
[2018-09-06] MEDS ORDERED: Melatonin 3 MG TABLET PO PRN (20:06)
[2018-09-06] MEDS: Ketorolac 30 MG/ML VIAL IVP PRN (21:58)
[2018-09-07] MEDS: 0.9 % Sodium Chloride 1,000 ML IVC SCH (02:13)
[2018-09-07] MEDS: Ketorolac 30 MG/ML VIAL IVP PRN (05:11)
--- NOTE | 2018-09-07 06:58 | Urology History & Physical ---
Date of Encounter: 09/07/18 Time of Encounter: 06:56 Assessment and Plan (1) Flank pain Current Visit: No Status: Resolved I personally reviewed the CT scan. These are expected postoperative changes. Patient feels much better this morning with minimal discomfort. He is scheduled for ureteral stent this morning but has decided not to proceed with the procedure. He desires discharge today as long as his pain remains under control. Will stop his IV fluids and IV acetaminophen. Hold all other pain medication. Monitor patient for 6 hours and then discharge if he remains mostly pain free. History of Present Illness Chief complaint: flank pain HPI: Mr. Muhammad is a 38 year old male readmission for flank pain. stent removed on saturday. ureteral spasm required repeat admission. He was discharged and had recurrence of symptoms. CT scan in the emergency room last night showed mild hydronephrosis with periureteral stranding. This morning he feels much better with only 1 out of 10 pain. He has not received narcotic pain medication in a number of hours. Past Med Surg Social Fam HX - Past Medical History Medical history: other Additional medical history: Kidney stone Psychiatric history: no psych history - Past Surgical History Surgical History: herniorrhaphy Additional surgical history: hernia repair - Social History Smoking Status: Never smoker Smokeless Tobacco Status: No Alcohol use: none Drug use: none Medications and Allergies HYDROcodone/Acet 5/325 mg [[place] 5-325 mg] 1 tab PO Q6H PRN 4 Days #15 tab 09/02 [Rx] Lansoprazole [Prevacid] 30 mg PO DAILY 09/02/18 [History] Ketorolac [Toradol] 10 mg PO Q6HR PRN 3 Days #10 tablet 09/05/18 [Rx] 3 Allergy/AdvReac Type Severity Reaction Status Date / Time ceftriaxone [From Rocephin] AdvReac Vomiting Verified 03/27/17 12:09 Review of Systems - Constitutional no fatigue, no fever(s) - EENT Nose, mouth and throat: no dizziness, no sore throat - Cardiovascular no chest pain, no chest pain at rest - Respiratory no cough - Gastrointestinal abdominal pain, nausea - Genitourinary flank pain - Integumentary no erythema - Neurological no confusion - Psychiatric no anxiety - Hematologic/Lymphatic no easy bleeding - Allergic/Immunologic no throat swelling Exam Initial Vital Signs Temp Pulse Resp BP Pulse Ox 97.8 F 63 20 140/89 97 09/06/18 10:47 09/06/18 10:47 09/06/18 10:47 09/06/18 10:47 09/06/18 10:47 - General physical appearance Present: no distress, no pain - Eyes Present: PERRL - ENT Present: normal nares - Neck Present: no masses - Respiratory Present: normal respiratory effort - Cardiovascular Cardiovascular exam IM: RRR - Abdomen Abdomen: Present: soft - Neurologic Present: normal coordination. Absent: disoriented, confused Urology Results - Labs 09/06/18 11:17 09/06/18 11:17 Abnormal lab results MPV 9.2 fL (9.4-12.4) L 09/06/18 11:17 Urine Blood Large (Negative) H 09/06/18 10:57 Urine Microscopic RBC 5-15 per hpf (0-3) H 09/06/18 10:57 All other labs normal.
--- NOTE | 2018-09-07 07:04 | Discharge Summary ---
Date of Encounter: 09/07/18 Time of Encounter: 07:04 - Discharge Diagnosis (1) Flank pain Priority: Primary Status: Resolved Comments: Flank pain likely from ureteral swelling and spasm. He declined ureteral stent this morning. Pain completely controlled. Likely discharge today. - Hospital Course Hospital course: Mr. Muhammad is a 38 year old male patient readmitted for ureteral spasm and flank pain. Pain again under control. Elected not to place ureteral stent. Patient will be discharged today as long as pain remains controlled off IV fluids and all pain medication. - Time Spent with Patient Total time spent providing and/or coordinating discharge services: - Discharge Medications Prescriptions: Belladonna Alkaloids/Opium [B + O] 30 mg RC Q6HR PRN 1 Days #3 supp.rect PRN Reason: Pain Hyoscyamine SL [Levsin Sl] 0.125 mg SL Q2H PRN #30 tab.subl PRN Reason: Ureteral spasm Oxycodone HCl/Acetaminophen [Percocet 5-325 mg Tablet] 1 each PO Q4H PRN 3 Days #10 tablet PRN Reason: Pain Tamsulosin [Flomax] 0.4 mg PO DAILY #7 capsule Home Medications: Lansoprazole [Prevacid] 30 mg PO DAILY 09/02/18 [History] Ketorolac [Toradol] 10 mg PO Q6HR PRN 3 Days #10 tablet 09/05/18 [Rx] [place]ad[place] Alkaloids/Opium [B + O] 30 mg RC Q6HR PRN 1 Days #3 supp.rect [Rx] Hyoscyamine SL [Levsin Sl] 0.125 mg SL Q2H PRN #30 tab.subl 09/07/18 [Rx] Oxycodone HCl/Acetaminophen [Percocet 5-325 mg Tablet] 1 each PO Q4H PRN 3 Days #10 tablet 09/07/18 [Rx] Tamsulosin [Flomax] 0.4 mg PO DAILY #7 capsule 09/07/18 [Rx] Allergies/Adverse Reactions: 3 Allergy/AdvReac Type Severity Reaction Status Date / Time ceftriaxone [From Rocephin] AdvReac Vomiting Verified 03/27/17 12:09 Date of admission: 09/06/18 14:31 Primary care physician: Belgica Blancas CNP Discharging clinician: Dev Ramírez Anticipated date of discharge: 09/07/18 Exam Initial Vital Signs Temp Pulse Resp BP Pulse Ox 97.8 F 63 20 140/89 97 09/06/18 10:47 09/06/18 10:47 09/06/18 10:47 09/06/18 10:47 09/06/18 10:47 - General physical appearance Present: no distress, no pain - Patient Status Disposition: Home, Self-Care Condition: Good Functional capacity at discharge: independent ambulation Overall status at discharge: patient is progressing back to baseline - Discharge Instructions Follow Up With: Belgica Blancas, UTILITY BILL COMPLAINTS INVESTIGATOR [Primary Care Provider] - Additional Instructions: Expect some discomfort. Call if extreme pain or fever over 101 degrees No activity restrictions My office will contact patient for follow-up appointment - Diet and Activity Activity: increase activity as tolerated Diet: advance to your usual diet
[2018-09-07 08:49] VITALS: BP 149/97
== END 2018-09-07 13:24 | disposition home or self-care (01) ==
LOC: EMEROOARM 10:46 → 3BNU 10:46
PROVIDERS: ADMIT Urology; ATTEND Urology